=== PATIENT | female | born 1995 | race African-American/Black ===

== ENCOUNTER 2016-12-06 11:53 | Observation (INO) | payer SELFPAY ==
[~2016-12-06] VITALS: Ht 160 cm; Wt 81.2 kg
[2016-12-06] MEDS ORDERED: PREN-88 PO (15:44)
== END 2016-12-06 16:00 | disposition home or self-care (01) ==
LOC: EDSTATUS 12:06 → L&D 12:07
PROVIDERS: ADMIT Specialist; ATTEND Specialist
DX: O26.892 Other specified pregnancy related conditions, second trimester (principal); R10.9 Unspecified abdominal pain; Z3A.24 24 weeks gestation of pregnancy
CPT/HCPCS: 76805; 99281; G0378

== ENCOUNTER 2017-02-04 11:17 | Observation (INO) | payer MEDICAID ==
[~2017-02-04] VITALS: Ht 152.4 cm; Wt 84.4 kg
[~2017-02-04 11:17] MED LIST: PREN-88 PO
[2017-02-04] MEDS ORDERED: LACTATED RINGERS 1,000 ML IV SCH (11:52)
[2017-02-04 12:33] LABS: CLARITY URINE CLEAR (CLEAR); COLOR URINE YELLOW (YELLOW); GLUCOSE URINE NEGATIVE (NEGATIVE); KETONES URINE 3+ (NEGATIVE); LEUKOCYTE ESTERASE URINE 2+ (NEGATIVE); NITRITE URINE NEGATIVE (NEGATIVE); OCCULT BLOOD URINE 2+ (NEGATIVE); PH URINE 6.5 (4.5-8.0); PROTEIN URINE NEGATIVE (NEGATIVE); SPECIFIC GRAVITY URINE 1.025 (1.005-1.030)
[2017-02-04 12:49] LABS: RBC URINE 15-25 /hpf (0-2); WBC URINE 15-25 /hpf (0-2)
[2017-02-04 12:50] LABS: BACTERIA URINE 1+; SQUAMOUS EPITHELIAL CELL URINE FEW /lpf (RARE/1+); TRICHOMONAS URINE FEW
[2017-02-04] MEDS ORDERED: METRONIDAZOLE 500MG TABLET PO NR (14:15)
[2017-02-04] MEDS ORDERED: CEFAZOLIN 2,000 MG in DEXT 5% WATER 100 ML IV SCH (14:15)
[2017-02-04] MEDS ORDERED: TERBUTALINE SULFATE 1MG/ML VIAL SUBCUT NR (14:15)
== END 2017-02-04 15:30 | disposition home or self-care (01) ==
LOC: L&D 11:17
PROVIDERS: ADMIT Obstetrics & Gynecology; ATTEND Obstetrics & Gynecology
DX: O26.893 Other specified pregnancy related conditions, third trimester (principal); R10.9 Unspecified abdominal pain; Z3A.33 33 weeks gestation of pregnancy
CPT/HCPCS: 76805; 76815; 81001; 96365; G0378; J0690; J3105; J7120; J7060

== ENCOUNTER 2017-02-07 10:17 | Observation (INO) | payer MEDICAID ==
[~2017-02-07] VITALS: Ht 160 cm; Wt 86.2 kg
[2017-02-07] MEDS ORDERED: LACTATED RINGERS 1,000 ML IV SCH (11:15)
[2017-02-07] MEDS: TERBUTALINE SULFATE 1MG/ML VIAL SUBCUT PRN ×2 (11:28→12:49)
[2017-02-07 12:42] LABS: CLARITY URINE CLEAR (CLEAR); COLOR URINE YELLOW (YELLOW); GLUCOSE URINE NEGATIVE (NEGATIVE); KETONES URINE 4+ (NEGATIVE); LEUKOCYTE ESTERASE URINE 1+ (NEGATIVE); NITRITE URINE NEGATIVE (NEGATIVE); OCCULT BLOOD URINE NEGATIVE (NEGATIVE); PROTEIN URINE NEGATIVE (NEGATIVE); SPECIFIC GRAVITY URINE 1.013 (1.005-1.030); UROBILINOGEN URINE 0.2 E.U./dL (0.2-1.0)
[2017-02-07 13:16] LABS: BACTERIA URINE 1+; RBC URINE NONE SEEN /hpf (0-2); SQUAMOUS EPITHELIAL CELL URINE FEW /lpf (RARE/1+)
[2017-02-07] MEDS ORDERED: DEXT 5%/LACTATED RINGERS 1,000 ML IV SCH (13:55)
[2017-02-07] MEDS ORDERED: CEFAZOLIN 2,000 MG in DEXT 5% WATER 100 ML IV SCH (14:00)
== END 2017-02-07 16:00 | disposition home or self-care (01) ==
LOC: L&D 10:17
PROVIDERS: ADMIT Obstetrics & Gynecology; ATTEND Obstetrics & Gynecology
DX: O26.893 Other specified pregnancy related conditions, third trimester (principal); R10.2 Pelvic and perineal pain; M79.659 Pain in unspecified thigh; Z3A.33 33 weeks gestation of pregnancy
CPT/HCPCS: 81001; 96365; 96372; 99281; G0378; J0690; J3105; J7120; 96360; J7060; J7121

== ENCOUNTER 2017-03-22 07:29 | Observation (INO) | payer MEDICAID ==
[~2017-03-22] VITALS: Ht 160 cm; Wt 85.3 kg
== END 2017-03-22 10:00 | disposition home or self-care (01) ==
LOC: L&D 07:29
PROVIDERS: ADMIT Obstetrics & Gynecology; ATTEND Obstetrics & Gynecology
DX: O42.92 Full-term premature rupture of membranes, unspecified as to length of time between rupture and onset of labor (principal); Z3A.38 38 weeks gestation of pregnancy
CPT/HCPCS: 76815; 76818; G0378

== ENCOUNTER 2017-03-25 19:56 | Observation (INO) | payer MEDICAID ==
[~2017-03-25] VITALS: Ht 160 cm; Wt 85.3 kg
== END 2017-03-25 21:30 | disposition home or self-care (01) ==
LOC: L&D 19:56
PROVIDERS: ADMIT Obstetrics & Gynecology; ATTEND Obstetrics & Gynecology
DX: O26.899 Other specified pregnancy related conditions, unspecified trimester (principal); R10.9 Unspecified abdominal pain; Z3A.00 Weeks of gestation of pregnancy not specified
CPT/HCPCS: 99281; G0378

== ENCOUNTER 2022-06-29 08:43 | Emergency (ER) | payer MEDICAID ==
[~2022-06-29] VITALS: Ht 162.6 cm; Wt 67.0 kg
[2022-06-29 08:46] VITALS: BP 109/75
[2022-06-29] MEDS ORDERED: HYDR453.3 TP (09:50)
== END 2022-06-29 10:08 | disposition home or self-care (01) ==
LOC: ER 08:43
DX: L30.4 Erythema intertrigo (principal)
CPT/HCPCS: 99282